=== PATIENT | female | born 1935 | race Caucasian/White ===

== ENCOUNTER → 2016-07-13 | Outpatient (CLI) | payer MEDICARE, OTHER ==
[~2016-07-13] MED LIST: ALEVE220 MG PO; ASPIRIN (CHILDR81 MG PO; LEVOTHROID (S125 MCG PO; LEVOTHROID (SY88 MCG PO; LOPRESSOR25 MG PO; PRINIVIL OR ZES10 MG PO; VITAMIN B-121000 MCG PO
== END ==
LOC: LGSMG 12:00
DX: R10.9 Unspecified abdominal pain (principal)